=== PATIENT | male | born 1960 | race Caucasian/White ===

== ENCOUNTER 2020-06-11 08:01 | Day surgery (SDC) | payer BC ==
[2020-06-09 11:09] VITALS: BMI 41.1
[2020-06-11] MEDS ORDERED: AFRIN NASAL MIST 15 ML BOT ONE ×2 (08:34→09:13)
[2020-06-11] MEDS ORDERED: Scopolamine 1.5 mg/72 hour Patch ONE (09:01)
[2020-06-11] MEDS ORDERED: Metoclopramide HCl 10 MG/2 ML VIAL ONE (09:05)
[2020-06-11] MEDS ORDERED: Succinylcholine 200 MG/10 ml SYRINGE FS ONE (09:05)
[2020-06-11] MEDS ORDERED: Dexamethasone 20 MG/5 ML VIAL ONE (09:05)
[2020-06-11] MEDS ORDERED: PHENYLEPHRINE-NS 100 MCG/ML 10 ML SYRINGE ONE (09:05)
[2020-06-11] MEDS ORDERED: Lidocaine 1% PF 5 ML VIAL ONE (09:05)
[2020-06-11] MEDS ORDERED: PROPOFOL 200 MG/20 ML VIAL ONE (09:05)
[2020-06-11] MEDS ORDERED: Ondansetron PF 4 MG/2 ML Vial ONE (09:05)
[2020-06-11] MEDS ORDERED: XYLOCAINE 2%-EPI 1:100,000 20 ML VIAL ONE (09:13)
[2020-06-11] MEDS ORDERED: Bacitracin Zinc Ointment 30 gm TUBE ONE (09:13)
[2020-06-11] MEDS ORDERED: Fentanyl 100 MCG/2 ML VIAL ONE ×3 (09:39→11:51)
[2020-06-11] MEDS ORDERED: Famotidine/PF 20 mg/2ml Vial ONE (09:39)
[2020-06-11] MEDS ORDERED: Midazolam HCl 2 mg/2 ml Vial ONE (09:48)
[2020-06-11] MEDS ORDERED: Promethazine HCl 25 MG/ML VIAL ONE (11:08)
[2020-06-11] MEDS ORDERED: Morphine 2 MG/ML VIAL ONE ×2 (12:52→13:36)
[2020-06-11] MEDS ORDERED: HYDROcodone/Acetaminophen 5/325 mg Tablet ONE (13:18)
--- NOTE | 2020-06-11 23:25 | OP ---
DATE OF PROCEDURE: 06/11/2020 PREOPERATIVE DIAGNOSES: 1. Chronic rhinosinusitis. 2. Right middle turbinate sushila bullosa. 3. Nasoseptal deviation. 4. Bilateral inferior turbinate hypertrophy. 5. Nasal obstruction. POSTOPERATIVE DIAGNOSES: 1. Chronic rhinosinusitis. 2. Right middle turbinate sushila bullosa. 3. Nasoseptal deviation. 4. Bilateral inferior turbinate hypertrophy. 5. Nasal obstruction. PROCEDURES PERFORMED: 1. Bilateral endoscopic sinus surgery, total ethmoidectomies. 2. Bilateral endoscopic sinus surgery, maxillary antrostomies. 3. Bilateral endoscopic sinus surgery, sphenoidotomies. 4. Bilateral endoscopic sinus surgery, frontal sinus exploration. 5. Nasoseptoplasty. 6. Bilateral inferior turbinate submucosal resection. 7. Endoscopic resection right middle turbinate sushila bullosa. ESTIMATED BLOOD LOSS: 50 mL. COMPLICATIONS: None. ANESTHESIA: GETA. LEAD BUSINESS ANALYST: PROCEDURE IN DETAIL: Patient was taken to the operating room and placed supine on the table. General endotracheal anesthesia was obtained by the anesthesia staff. Then 1% lidocaine with 1:100,000 epinephrine was injected into the nasal septum as well as the inferior turbinates. The patient was prepped and draped in standard surgical fashion. The Afrin pledgets were then removed. A [place] incision was made on the left nasal septum. Submucoperichondrial dissection was performed bilaterally of the deviated portions of the septum, which included the maxillary crest and the crest deviation, as well as the mid portion of the septum. Cartilage and bony deviation were removed, leaving a generous caudal and dorsal strut. Any straight pieces of cartilage were then placed within the cartilage press, pressed, straightened, and then placed between the mucoperichondrial flaps, which were then closed using a 4-0 gut stitch. The inferior turbinates were then punctured with the submucosal Coblation machine, and 3 separate coblations were delivered to the anterior inferior portion of the inferior turbinates. Following this, the nasal cavity was irrigated. All debris was removed. An orogastric tube was placed. Gastric contents and Irwin splints were then placed in the nasal cavity and sutured with a 3-0 silk stitch. Following this, a 0-degree endoscope was advanced to the middle meatus. A sickle knife was used to vertically incise the right middle turbinate sushila bullosa deformity, which was gigantic. Following this, the lateral wall of the sushila bullosa deformity was resected using the straight Blakesley forceps and a 0-degree microdebrider. Following this, the uncinate process, which had been lateralized bilaterally and was causing obstruction of the maxillary sinus was identified. The ball-ended probe was then used to anteriorly fractured the uncinate process bilaterally and the uncinate process was then removed using the 0-degree and 40-degree microdebrider blade along with the up-biting Blakesley forceps bilaterally. Following this, the natural maxillary sinus ostia was identified and the maxillary ostia was then widened using a 40-degree microdebrider and the straight Blakesley forceps bilaterally. Following this, the ethmoidal bulla was identified and was punctured on its medial and inferior aspect bilaterally using the 0-degree microdebrider. Following this, the ethmoidal bulla was removed using the microdebrider and up-biting Blakesley forceps along with the anterior ethmoidal cells bilaterally. Following this, the grand lamella was identified bilaterally and was punctured using the 0-degree microdebrider into the posterior ethmoidal cells. Keeping the cribriform plate in view, the ethmoidal cells were opened working from posterior to anterior direction with the 0-degree microdebrider, 40-degree microdebrider and up-biting Blakesley forceps. Following this, the sphenoid sinus was identified and the anterior wall of the sphenoid sinus was punctured using the 0-degree microdebrider through the previous ethmoidectomies. Following this, the sphenoid sinus ostia was then widened in a medial and inferior direction bilaterally using 0-degree microdebrider. Following this, the 45-degree endoscope was used along with a 40-degree microdebrider blade, further open the anterior ethmoidal cells and exposed the frontal sinus ostia bilaterally. Following this, the frontal sinus ostia was then widened using the 40-degree microdebrider blade bilaterally. Following this, the nasal cavity was irrigated. Nasal pore packing was placed within the middle meatus. Irwin splints were placed and secured. The patient tolerated the procedure well. Job ID: [id number]
--- NOTE | 2020-06-12 07:22 | EKG ---
Test Reason : PREOP Blood Pressure : / mmHG Vent. Rate : 078 BPM Atrial Rate : 078 BPM P-R Int : 196 ms QRS Dur : 098 ms QT Int : 416 ms P-R-T Axes : 049 041 029 degrees QTc Int : 474 ms Normal sinus rhythm Normal ECG Confirmed by DR. Marilee CHERRY ([id number]) on 06/12/2020 7:22:18 AM Referred By: MARTINE Confirmed By:DR. Marilee CHERRY
== END 2020-06-11 14:15 | disposition home or self-care (01) ==
LOC: SDC 08:01
PROVIDERS: ATTEND Otolaryngology Plastic Surgery within the Head & Neck
PROC: 09BS8ZZ Excision of Right Frontal Sinus, Via Natural or Artificial Opening Endoscopic (ICD-10-PCS; principal; 2020-06-11)
PROC: 099R8ZZ Drainage of Left Maxillary Sinus, Via Natural or Artificial Opening Endoscopic (ICD-10-PCS; principal; 2020-06-11)
PROC: 099Q8ZZ Drainage of Right Maxillary Sinus, Via Natural or Artificial Opening Endoscopic (ICD-10-PCS; principal; 2020-06-11)
PROC: 09CX8ZZ Extirpation of Matter from Left Sphenoid Sinus, Via Natural or Artificial Opening Endoscopic (ICD-10-PCS; principal; 2020-06-11)
PROC: 09BT8ZZ Excision of Left Frontal Sinus, Via Natural or Artificial Opening Endoscopic (ICD-10-PCS; principal; 2020-06-11)
PROC: 09BL8ZZ Excision of Nasal Turbinate, Via Natural or Artificial Opening Endoscopic (ICD-10-PCS; principal; 2020-06-11)
PROC: 09BU8ZZ Excision of Right Ethmoid Sinus, Via Natural or Artificial Opening Endoscopic (ICD-10-PCS; principal; 2020-06-11)
PROC: 09BM8ZZ Excision of Nasal Septum, Via Natural or Artificial Opening Endoscopic (ICD-10-PCS; principal; 2020-06-11)
PROC: 09BV8ZZ Excision of Left Ethmoid Sinus, Via Natural or Artificial Opening Endoscopic (ICD-10-PCS; principal; 2020-06-11)
PROC: 09CW8ZZ Extirpation of Matter from Right Sphenoid Sinus, Via Natural or Artificial Opening Endoscopic (ICD-10-PCS; principal; 2020-06-11)
DX: J32.4 Chronic pansinusitis (principal); J34.2 Deviated nasal septum; J34.3 Hypertrophy of nasal turbinates; J33.9 Nasal polyp, unspecified; J34.89 Other specified disorders of nose and nasal sinuses; I10 Essential (primary) hypertension; E78.5 Hyperlipidemia, unspecified; G47.30 Sleep apnea, unspecified; N40.0 Benign prostatic hyperplasia without lower urinary tract symptoms; K21.9 Gastro-esophageal reflux disease without esophagitis; E66.01 Morbid (severe) obesity due to excess calories; Z68.41 Body mass index [BMI] 40.0-44.9, adult; Z79.899 Other long term (current) drug therapy
CPT/HCPCS: 93005; 93010; J1100; J2250; J2270; J2405; J2550; J2704; J2765; J3010; S0028